=== PATIENT | female | born 1995 | race Caucasian/White ===

== ENCOUNTER 2016-09-24 19:37 | Inpatient (IN) | payer BC ==
[~2016-09-24] VITALS: Ht 154.9 cm; Wt 60.4 kg
[~2016-09-24 19:37] MED LIST: ENALAPRIL MALEA10 M1 PO; INSULIN PUMP SCCONT; KEPPRA100 MG/1 M PO; KEPPRA1000 MG PO; LANTUS100 UNIT/1 SQ; LEVEMIR FL100 UNIT/1 SC; NOVOLOG 10100 UNITS/ SC; NOVOLOG PE100 UNITS/ SC; NOVOLOG100 UNIT/1 SQ; STRATTERA80 MG PO; VALTREX1000 MG PO; VYVANSE30 MG PO; ZOFRAN4 MG PO
[2016-09-24 20:07] LABS: HEMATOCRIT 40.7 % (36.0-46.0); MCH 30.6 PG (29.0-34.0); MCHC 35.4 G/DL (30.0-36.0); MCV 86.6 FL (83-99); MEAN PLAT.VOLUME 9.6 uM^3 (9.5-12.4); PLATELET COUNT 341 K/uL (156-360); RBC DIS.WIDTH-CV 12.8 % (11.8-14.6)
[2016-09-24 20:17] LABS: CHLORIDE 106 mEq/L (99-109); POTASSIUM 3.7 mEq/L (3.7-5.4); SODIUM 136 mEq/L (136-147)
[2016-09-24 20:18] LABS: AMYLASE 37 IU/L (1-118)
[2016-09-24 20:20] LABS: GLUCOSE 109 mg/dL (70-99)
[2016-09-24 20:21] LABS: ANION GAP 17 MEQ/L (2-14)
[2016-09-24 20:22] LABS: TOTAL BILIRUBIN 0.1 mg/dL (0.0-1.0)
[2016-09-24 20:23] LABS: ALKALINE PHOSPHATASE 118 IU/L (3-129); GFR ESTIMATE (CALCULATED) > 59 mL/min/
[2016-09-24 20:25] LABS: UREA NITROGEN (BUN) 10 mg/dL (9-23)
[2016-09-24 20:27] LABS: LIPASE 6 U/L (1.0-51.0)
[2016-09-24 20:31] LABS: ADD MIUA? YES; BILIRUBIN NEGATIVE; BLOOD LARGE; COLOR YELLOW ((YELLOW)); GLUCOSE (STRIP) NEGATIVE; KETONES 80; LEUKOCYTES NEGATIVE; NITRITE NEGATIVE; PROTEIN (STRIP) 30; SPECIFIC GRAVITY 1.009 (1.000-1.030); UROBILINOGEN 0.2 MG/DL (0.2-1.0)
[2016-09-24 20:33] LABS: QUANTITATIVE HCG < 4.0 MIU/ML
[2016-09-24 20:41] LABS: BACTERIA NONE SEEN /HPF; EPITHELIAL CELLS RARE /HPF; HYALINE CASTS 0-5 /LPF; MUCUS TRACE /LPF; RED BLOOD CELLS TNTC /HPF (0-5); UCUL ADDED? NO; UNCLASSIFIED CRYSTALS 1+ /HPF; WHITE BLOOD CELLS 0-5 /HPF (0-5)
[2016-09-24 21:16] LABS: CARBON DIOXIDE (BICARBONATE) 14.1 MEQ/L (20-31)
[2016-09-24 23:02] LABS: INFLUENZA A VIRAL ANTIGEN POSITIVE; INFLUENZA B VIRAL ANTIGEN NEGATIVE
[2016-09-24 23:11] LABS: CHLORIDE 113 mEq/L (99-109); POTASSIUM 3.4 mEq/L (3.7-5.4)
[2016-09-24 23:12] LABS: SODIUM 139 mEq/L (136-147)
[2016-09-24 23:13] LABS: GLUCOSE 116 mg/dL (70-99)
[2016-09-24 23:15] LABS: ANION GAP 14 MEQ/L (2-14)
[2016-09-24 23:17] LABS: GFR ESTIMATE (CALCULATED) > 59 mL/min/
[2016-09-24 23:18] LABS: UREA NITROGEN (BUN) 10 mg/dL (9-23)
[2016-09-24 23:58] LABS: CREATINE KINASE 128 IU/L (1-294)
[2016-09-25] VITALS (9 sets, daily range): BP systolic 92–136; BP diastolic 60–86
[2016-09-25] MEDS ORDERED: NOVOLOG PE100 UNITS/ SC (00:06)
[2016-09-25 02:19] LABS: POINT-OF-CARE METER ID UU13113702
[2016-09-25 03:53] LABS: METH RESISTANT S AUREUS PCR NEGATIVE (NEGATIVE)
[2016-09-25 03:54] LABS: PROBE CHECK PASS; SPECIMEN PROCESSING CONTROL PASS
[2016-09-25 04:31] LABS: POINT-OF-CARE USER ID PHATLC
[2016-09-25 04:52] LABS: CARBON DIOXIDE (BICARBONATE) 16.6 MEQ/L (20-31)
[2016-09-25 04:57] LABS: CHLORIDE 112 mEq/L (99-109); SODIUM 138 mEq/L (136-147)
[2016-09-25 04:58] LABS: CHLORIDE 113 mEq/L (99-109); SODIUM 138 mEq/L (136-147)
[2016-09-25 04:59] LABS: GLUCOSE 126 mg/dL (70-99)
[2016-09-25 05:00] LABS: ANION GAP 11 MEQ/L (2-14); GLUCOSE 127 mg/dL (70-99)
[2016-09-25 05:01] LABS: ANION GAP 10 MEQ/L (2-14)
[2016-09-25 05:03] LABS: GFR ESTIMATE (CALCULATED) > 59 mL/min/
[2016-09-25 05:04] LABS: GFR ESTIMATE (CALCULATED) > 59 mL/min/; UREA NITROGEN (BUN) 6 mg/dL (9-23)
[2016-09-25 05:05] LABS: UREA NITROGEN (BUN) 6 mg/dL (9-23)
[2016-09-25 08:37] LABS: MAGNESIUM 1.4 mg/dL (1.3-2.7)
[2016-09-25 10:37] LABS: ANION GAP 12 MEQ/L (2-14); CHLORIDE 108 MEQ/L (99-109); GFR ESTIMATE (CALCULATED) > 59 mL/min/; GLUCOSE 156 mg/dL (70-99); SAMPLE HEMOLYSIS CHECK 1; SAMPLE ICTERIC CHECK 0; SAMPLE LIPEMIA CHECK 0; SODIUM 138 MEQ/L (136-147); UREA NITROGEN (BUN) 5 mg/dL (9-23)
[2016-09-25 10:38] LABS: POTASSIUM 3.7 MEQ/L (3.7-5.4)
[2016-09-25 15:30] LABS: ANION GAP 9 MEQ/L (2-14); CHLORIDE 110 MEQ/L (99-109); GFR ESTIMATE (CALCULATED) > 59 mL/min/; MAGNESIUM 2.1 mg/dl (1.3-2.7); POTASSIUM 3.4 MEQ/L (3.7-5.4); SAMPLE HEMOLYSIS CHECK 0; SAMPLE ICTERIC CHECK 0; SAMPLE LIPEMIA CHECK 0; SODIUM 139 MEQ/L (136-147); UREA NITROGEN (BUN) 6 mg/dL (9-23)
[2016-09-25 15:33] LABS: GLUCOSE 273 mg/dL (70-99)
[2016-09-25] MEDS ORDERED: OSELTAMIVIR PHO75 MG PO (15:49)
[2016-09-25] MEDS ORDERED: Tums,OsCal PO (15:50)
== END 2016-09-25 16:19 | disposition home or self-care (01) | DRG 639 ==
LOC: EME 19:37 → EDOF 09-25 01:05 → 4WEST 09-25 02:04
PROVIDERS: Emergency Medicine; Family Medicine; Hospitalist; Physician Assistant
DX: E10.10 Type 1 diabetes mellitus with ketoacidosis without coma (principal); E87.6 Hypokalemia; J11.1 Influenza due to unidentified influenza virus with other respiratory manifestations; E86.0 Dehydration; G40.909 Epilepsy, unspecified, not intractable, without status epilepticus; R31.9 Hematuria, unspecified; Z96.41 Presence of insulin pump (external) (internal); Z79.4 Long term (current) use of insulin; F17.200 Nicotine dependence, unspecified, uncomplicated
CPT/HCPCS: 74176; 80048 91; 80053; 80069; 81003; 82010; 82150; 82550; 82803; 82948; 83690; 83735; 84702; 85027; 87081; 87502; 87641; 99281; 99285; J1644; J1815; J1885; J3010; J3475; J3480; J7030; J7120

== ENCOUNTER 2016-10-20 10:12 | Inpatient (IN) | payer BC ==
[2016-10-20] VITALS (10 sets, daily range): BP systolic 102–125; BP diastolic 65–87
[~2016-10-20] VITALS: Ht 154.9 cm; Wt 60.7 kg
[~2016-10-20 10:12] MED LIST changes: +OSELTAMIVIR PHO75 MG PO; +Tums,OsCal PO
[2016-10-20 10:50] LABS: HEMATOCRIT 43.3 % (36.0-46.0); MCH 31.6 PG (29.0-34.0); MCHC 32.6 G/DL (30.0-36.0); PLATELET COUNT 353 K/uL (156-360); RBC DIS.WIDTH-CV 14.3 % (11.8-14.6); RBC DIS.WIDTH-SD 50.8 % (39-53); RED BLOOD COUNT 4.46 M/uL (3.80-5.20)
[2016-10-20 10:52] LABS: MCV 97.1 FL (83-99); WHITE BLOOD COUNT 11.5 K/uL (4.1-10.2)
[2016-10-20 10:54] LABS: CARBON DIOXIDE (BICARBONATE) 7.7 MEQ/L (20-31)
[2016-10-20 11:06] LABS: CHLORIDE 100 mEq/L (99-109); POTASSIUM 4.7 mEq/L (3.7-5.4); SODIUM 133 mEq/L (136-147)
[2016-10-20 11:07] LABS: GLUCOSE 558 mg/dL (70-99)
[2016-10-20 11:09] LABS: ANION GAP 28 MEQ/L (2-14)
[2016-10-20 11:11] LABS: GFR ESTIMATE (CALCULATED) > 59 mL/min/
[2016-10-20 11:12] LABS: UREA NITROGEN (BUN) 13 mg/dL (9-23)
[2016-10-20 11:34] LABS: TOTAL BILIRUBIN 0.3 mg/dL (0.0-1.0)
[2016-10-20 11:35] LABS: ALKALINE PHOSPHATASE 111 IU/L (3-129)
[2016-10-20 11:38] LABS: LIPASE 884 U/L (1.0-51.0)
[2016-10-20 13:04] LABS: ADD MIUA? NO; BILIRUBIN NEGATIVE; BLOOD NEGATIVE; COLOR STRAW ((YELLOW)); GLUCOSE (STRIP) >=500; KETONES 80; LEUKOCYTES NEGATIVE; NITRITE NEGATIVE; PROTEIN (STRIP) 30; SPECIFIC GRAVITY 1.025 (1.000-1.030); UCUL ADDED? NO; UROBILINOGEN 0.2 MG/DL (0.2-1.0)
[2016-10-20] MEDS ORDERED: TUMS500 MG PO (13:54)
[2016-10-20] MEDS ORDERED: TRESIBA FL100 UNIT/1 SC (13:55)
[2016-10-20] MEDS ORDERED: MELOXICAM15 MG PO (13:55)
[2016-10-20 14:17] LABS: SAMPLE HEMOLYSIS CHECK 0; SAMPLE ICTERIC CHECK 0; SAMPLE LIPEMIA CHECK 0; TRIGLYCERIDES 631 MG/DL (Normal: <150)
[2016-10-20 14:22] LABS: Estimated Average Glucose 286 mg/dL (70-123); HEMOGLOBIN A1c (GLYCOHEMOGLOB) 11.6 % HGB (Below 5.7)
[2016-10-20 14:30] LABS: POINT-OF-CARE METER ID UU13113702
[2016-10-20 15:09] LABS: POINT-OF-CARE METER ID UU13113702
[2016-10-20 15:50] LABS: TROP-I INTERPRETATION NEGATIVE; TROPONIN-I < 0.01 ng/mL (0.0-0.30)
[2016-10-20 15:57] LABS: POINT-OF-CARE METER ID UU14174217
[2016-10-20 15:57] LABS: POTASSIUM 4.9 mEq/L (3.7-5.4)
[2016-10-20 16:00] LABS: ANION GAP 24 MEQ/L (2-14)
[2016-10-20 16:02] LABS: GFR ESTIMATE (CALCULATED) > 59 mL/min/
[2016-10-20 16:03] LABS: UREA NITROGEN (BUN) 12 mg/dL (9-23)
[2016-10-20 16:06] LABS: CHLORIDE 113 mEq/L (99-109); GLUCOSE 196 mg/dL (70-99); SODIUM 141 mEq/L (136-147)
[2016-10-20 17:10] LABS: METH RESISTANT S AUREUS PCR NEGATIVE (NEGATIVE)
[2016-10-20 17:12] LABS: PROBE CHECK PASS; SPECIMEN PROCESSING CONTROL PASS
[2016-10-20 17:19] LABS: POINT-OF-CARE METER ID UU14174217
[2016-10-20 18:21] LABS: POINT-OF-CARE METER ID UU14174217
[2016-10-20 18:25] LABS: POINT-OF-CARE METER ID UU14174217
[2016-10-20 19:45] LABS: POINT-OF-CARE METER ID UU14174217; POINT-OF-CARE USER ID PHATLC
[2016-10-20 20:34] LABS: POINT-OF-CARE METER ID UU14174217; POINT-OF-CARE USER ID ENVSME70
[2016-10-20 21:58] LABS: POINT-OF-CARE METER ID UU14174217; POINT-OF-CARE USER ID PHATLC
[2016-10-20 23:03] LABS: POINT-OF-CARE METER ID UU14174217; POINT-OF-CARE USER ID PHATLC
[2016-10-20 23:49] LABS: POINT-OF-CARE METER ID UU14174217; POINT-OF-CARE USER ID PHATLC
[2016-10-21] VITALS (24 sets, daily range): BP systolic 97–131; BP diastolic 58–89
[2016-10-21 01:11] LABS: POINT-OF-CARE METER ID UU14174217; POINT-OF-CARE USER ID PHATLC
[2016-10-21 02:13] LABS: POINT-OF-CARE METER ID UU14174217; POINT-OF-CARE USER ID PHATLC
[2016-10-21 02:40] LABS: POINT-OF-CARE METER ID UU14174217; POINT-OF-CARE USER ID PHATLC
[2016-10-21 03:36] LABS: CHLORIDE 111 mEq/L (99-109); SODIUM 137 mEq/L (136-147)
[2016-10-21 03:37] LABS: MAGNESIUM 1.6 mg/dL (1.3-2.7)
[2016-10-21 03:38] LABS: GLUCOSE 240 mg/dL (70-99)
[2016-10-21 03:40] LABS: ANION GAP 19 MEQ/L (2-14)
[2016-10-21 03:42] LABS: GFR ESTIMATE (CALCULATED) > 59 mL/min/
[2016-10-21 03:43] LABS: POTASSIUM 3.8 mEq/L (3.7-5.4); UREA NITROGEN (BUN) 6 mg/dL (9-23)
[2016-10-21 03:45] LABS: POINT-OF-CARE METER ID UU14174217; POINT-OF-CARE USER ID PHATLC
[2016-10-21 04:49] LABS: POINT-OF-CARE METER ID UU14174217; POINT-OF-CARE USER ID PHATLC
[2016-10-21 05:41] LABS: POINT-OF-CARE METER ID UU14174217; POINT-OF-CARE USER ID PHATLC
[2016-10-21 06:25] LABS: HEMATOCRIT 39.7 % (36.0-46.0); MCH 30.9 PG (29.0-34.0); MCHC 31.7 G/DL (30.0-36.0); MCV 97.3 FL (83-99); MEAN PLAT.VOLUME 9.6 uM^3 (9.5-12.4); PLATELET COUNT 300 K/uL (156-360); RBC DIS.WIDTH-CV 14.8 % (11.8-14.6); RBC DIS.WIDTH-SD 52.5 % (39-53); RED BLOOD COUNT 4.08 M/uL (3.80-5.20); WHITE BLOOD COUNT 11.8 K/uL (4.1-10.2)
[2016-10-21 06:26] LABS: POINT-OF-CARE METER ID UU14174217; POINT-OF-CARE USER ID PHATLC
[2016-10-21 07:27] LABS: POINT-OF-CARE METER ID UU14174217
[2016-10-21 07:48] LABS: ANION GAP 20 MEQ/L (2-14); CHLORIDE 111 MEQ/L (99-109); GFR ESTIMATE (CALCULATED) > 59 mL/min/; POTASSIUM 3.6 MEQ/L (3.7-5.4); SAMPLE HEMOLYSIS CHECK 0; SAMPLE ICTERIC CHECK 0; SAMPLE LIPEMIA CHECK 0; SODIUM 140 MEQ/L (136-147); UREA NITROGEN (BUN) 5 mg/dL (9-23)
[2016-10-21 07:50] LABS: CARBON DIOXIDE (BICARBONATE) < 10.0 MEQ/L (20-31); GLUCOSE 107 mg/dL (70-99)
[2016-10-21 08:15] LABS: LIPASE 1041 U/L (1.0-51.0)
[2016-10-21 08:25] LABS: POINT-OF-CARE METER ID UU14174217
[2016-10-21 08:47] LABS: AMYLASE 438 IU/L (1-118)
[2016-10-21 09:30] LABS: POINT-OF-CARE METER ID UU14174217
[2016-10-21 10:23] LABS: POINT-OF-CARE METER ID UU14174217
[2016-10-21 11:16] LABS: POINT-OF-CARE METER ID UU14174217
[2016-10-21 12:13] LABS: POINT-OF-CARE METER ID UU14174217
[2016-10-21 13:12] LABS: ANION GAP 16 MEQ/L (2-14); CHLORIDE 109 MEQ/L (99-109); GFR ESTIMATE (CALCULATED) > 59 mL/min/; GLUCOSE 134 mg/dL (70-99); POTASSIUM 3.4 MEQ/L (3.7-5.4); SAMPLE HEMOLYSIS CHECK 0; SAMPLE ICTERIC CHECK 0; SAMPLE LIPEMIA CHECK 0; SODIUM 137 MEQ/L (136-147); UREA NITROGEN (BUN) 4 mg/dL (9-23)
[2016-10-21 13:22] LABS: POINT-OF-CARE METER ID UU14174217; POINT-OF-CARE USER ID 606021424
[2016-10-21 14:14] LABS: POINT-OF-CARE METER ID UU14174217
[2016-10-21 15:44] LABS: POINT-OF-CARE METER ID UU14174217
[2016-10-21 15:44] LABS: POINT-OF-CARE METER ID UU14174217
[2016-10-21 15:56] LABS: ANION GAP 15 MEQ/L (2-14); CHLORIDE 108 MEQ/L (99-109); GFR ESTIMATE (CALCULATED) > 59 mL/min/; GLUCOSE 116 mg/dL (70-99); POTASSIUM 3.7 MEQ/L (3.7-5.4); SAMPLE HEMOLYSIS CHECK 0; SAMPLE ICTERIC CHECK 0; SAMPLE LIPEMIA CHECK 0; SODIUM 135 MEQ/L (136-147); UREA NITROGEN (BUN) 4 mg/dL (9-23)
[2016-10-21 16:00] LABS: TROP-I INTERPRETATION NEGATIVE; TROPONIN-I 0.01 ng/mL (0.0-0.30)
[2016-10-21 16:44] LABS: POINT-OF-CARE METER ID UU14174217
[2016-10-21 17:46] LABS: POINT-OF-CARE METER ID UU14174217
[2016-10-21 18:39] LABS: POINT-OF-CARE METER ID UU13113731
[2016-10-21 19:46] LABS: POINT-OF-CARE METER ID UU13113731
[2016-10-21 20:08] LABS: ANION GAP 20 MEQ/L (2-14); CHLORIDE 102 MEQ/L (99-109); GFR ESTIMATE (CALCULATED) > 59 mL/min/; POTASSIUM 3.9 MEQ/L (3.7-5.4); SAMPLE HEMOLYSIS CHECK 0; SAMPLE ICTERIC CHECK 0; SAMPLE LIPEMIA CHECK 0; SODIUM 130 MEQ/L (136-147); UREA NITROGEN (BUN) 5 mg/dL (9-23)
[2016-10-21 20:13] LABS: GLUCOSE 412 mg/dL (70-99)
[2016-10-21 20:48] LABS: POINT-OF-CARE METER ID UU14174217
[2016-10-21 21:51] LABS: POINT-OF-CARE METER ID UU14174217
[2016-10-21 22:19] LABS: POINT-OF-CARE METER ID UU14174217
[2016-10-21 23:19] LABS: POINT-OF-CARE METER ID UU14174217
[2016-10-22] VITALS (19 sets, daily range): BP systolic 92–117; BP diastolic 53–86
[2016-10-22 00:18] LABS: POINT-OF-CARE METER ID UU14174217
[2016-10-22 00:48] LABS: POINT-OF-CARE METER ID UU14174217
[2016-10-22 01:03] LABS: CHLORIDE 108 mEq/L (99-109); SODIUM 133 mEq/L (136-147)
[2016-10-22 01:05] LABS: GLUCOSE 390 mg/dL (70-99)
[2016-10-22 01:06] LABS: ANION GAP 22 MEQ/L (2-14)
[2016-10-22 01:08] LABS: GFR ESTIMATE (CALCULATED) > 59 mL/min/
[2016-10-22 01:09] LABS: UREA NITROGEN (BUN) 5 mg/dL (9-23)
[2016-10-22 01:26] LABS: CARBON DIOXIDE (BICARBONATE) < 5.0 mEq/L (20-31)
[2016-10-22 02:33] LABS: POINT-OF-CARE METER ID UU13113731
[2016-10-22 02:46] LABS: POINT-OF-CARE METER ID UU13113731
[2016-10-22 03:22] LABS: POINT-OF-CARE METER ID UU13113731
[2016-10-22 04:09] LABS: POINT-OF-CARE METER ID UU13113731
[2016-10-22 05:26] LABS: POINT-OF-CARE METER ID UU13113731
[2016-10-22 06:29] LABS: POINT-OF-CARE METER ID UU13113731
[2016-10-22 07:04] LABS: ANION GAP 24 MEQ/L (2-14); CHLORIDE 106 MEQ/L (99-109); GFR ESTIMATE (CALCULATED) > 59 mL/min/; GLUCOSE 330 mg/dL (70-99); POTASSIUM 3.4 MEQ/L (3.7-5.4); SAMPLE HEMOLYSIS CHECK 0; SAMPLE ICTERIC CHECK 0; SAMPLE LIPEMIA CHECK 0; SODIUM 134 MEQ/L (136-147); UREA NITROGEN (BUN) 5 mg/dL (9-23)
[2016-10-22 07:05] LABS: CARBON DIOXIDE (BICARBONATE) < 10.0 MEQ/L (20-31)
[2016-10-22 07:08] LABS: AMYLASE 287 IU/L (1-118); LIPASE 591 U/L (1.0-51.0)
[2016-10-22 07:46] LABS: POINT-OF-CARE METER ID UU13113731
[2016-10-22 08:20] LABS: POINT-OF-CARE METER ID UU13113731
[2016-10-22 08:34] LABS: HEMATOCRIT 36.5 % (36.0-46.0); MCH 31.5 PG (29.0-34.0); MCHC 31.5 G/DL (30.0-36.0); MEAN PLAT.VOLUME 10.3 uM^3 (9.5-12.4); PLATELET COUNT 242 K/uL (156-360); RBC DIS.WIDTH-CV 14.9 % (11.8-14.6); RBC DIS.WIDTH-SD 54.6 % (39-53); RED BLOOD COUNT 3.65 M/uL (3.80-5.20); WHITE BLOOD COUNT 8.5 K/uL (4.1-10.2)
[2016-10-22 08:36] LABS: POINT-OF-CARE METER ID UU13113731
[2016-10-22 09:05] LABS: QUANTITATIVE HCG < 4.0 MIU/ML
[2016-10-22 09:41] LABS: POINT-OF-CARE METER ID UU13113731
[2016-10-22 10:43] LABS: POINT-OF-CARE METER ID UU13113731
[2016-10-22 11:16] LABS: POINT-OF-CARE METER ID UU13113731
[2016-10-22 12:16] LABS: POINT-OF-CARE METER ID UU13113731
[2016-10-22 12:41] LABS: ANION GAP 11 MEQ/L (2-14); CHLORIDE 107 MEQ/L (99-109); GFR ESTIMATE (CALCULATED) > 59 mL/min/; SAMPLE HEMOLYSIS CHECK 0; SAMPLE ICTERIC CHECK 0; SAMPLE LIPEMIA CHECK 0; SODIUM 133 MEQ/L (136-147); UREA NITROGEN (BUN) 3 mg/dL (9-23)
[2016-10-22 12:43] LABS: GLUCOSE 118 mg/dL (70-99)
[2016-10-22 12:43] LABS: POINT-OF-CARE METER ID UU13113731
[2016-10-22 13:28] LABS: POINT-OF-CARE METER ID UU13113731
[2016-10-22 14:40] LABS: POINT-OF-CARE METER ID UU13113731
[2016-10-22 15:44] LABS: POINT-OF-CARE METER ID UU13113731
[2016-10-22 16:58] LABS: POINT-OF-CARE METER ID UU13113731
[2016-10-22 19:19] LABS: ANION GAP 15 MEQ/L (2-14); CHLORIDE 106 MEQ/L (99-109); GFR ESTIMATE (CALCULATED) > 59 mL/min/; SAMPLE HEMOLYSIS CHECK 0; SAMPLE ICTERIC CHECK 0; SAMPLE LIPEMIA CHECK 0; SODIUM 134 MEQ/L (136-147); UREA NITROGEN (BUN) 3 mg/dL (9-23)
[2016-10-22 19:26] LABS: GLUCOSE 267 mg/dL (70-99); POTASSIUM 3.9 MEQ/L (3.7-5.4)
[2016-10-22 22:08] LABS: POINT-OF-CARE METER ID UU13113731
[2016-10-23] VITALS (13 sets, daily range): BP systolic 93–132; BP diastolic 8–94
[2016-10-23 00:45] LABS: CHLORIDE 110 mEq/L (99-109); POTASSIUM 3.5 mEq/L (3.7-5.4); SODIUM 138 mEq/L (136-147)
[2016-10-23 00:47] LABS: GLUCOSE 167 mg/dL (70-99)
[2016-10-23 00:49] LABS: ANION GAP 17 MEQ/L (2-14)
[2016-10-23 00:51] LABS: GFR ESTIMATE (CALCULATED) > 59 mL/min/
[2016-10-23 00:52] LABS: UREA NITROGEN (BUN) 5 mg/dL (9-23)
[2016-10-23 06:47] LABS: ANION GAP 12 MEQ/L (2-14); CHLORIDE 105 MEQ/L (99-109); GFR ESTIMATE (CALCULATED) > 59 mL/min/; POTASSIUM 3.8 MEQ/L (3.7-5.4); SAMPLE HEMOLYSIS CHECK 0; SAMPLE ICTERIC CHECK 0; SAMPLE LIPEMIA CHECK 0; SODIUM 135 MEQ/L (136-147); UREA NITROGEN (BUN) 4 mg/dL (9-23)
[2016-10-23 06:54] LABS: GLUCOSE 274 mg/dL (70-99)
[2016-10-23 07:53] LABS: POINT-OF-CARE METER ID UU14162636
[2016-10-23 10:00] LABS: MAGNESIUM 1.8 mg/dl (1.3-2.7)
[2016-10-23 11:18] LABS: POINT-OF-CARE METER ID UU14162636
[2016-10-23 12:50] LABS: ANION GAP 13 MEQ/L (2-14); CHLORIDE 105 MEQ/L (99-109); GFR ESTIMATE (CALCULATED) > 59 mL/min/; GLUCOSE 159 mg/dL (70-99); POTASSIUM 3.2 MEQ/L (3.7-5.4); SAMPLE HEMOLYSIS CHECK 0; SAMPLE ICTERIC CHECK 0; SAMPLE LIPEMIA CHECK 0; SODIUM 137 MEQ/L (136-147); UREA NITROGEN (BUN) 3 mg/dL (9-23)
[2016-10-23 14:31] LABS: POINT-OF-CARE METER ID UU14162636
[2016-10-23 17:54] LABS: POINT-OF-CARE METER ID UU13113702
[2016-10-23 17:54] LABS: POINT-OF-CARE METER ID UU13113702
[2016-10-23 21:03] LABS: ANION GAP 15 MEQ/L (2-14); CHLORIDE 102 MEQ/L (99-109); GFR ESTIMATE (CALCULATED) > 59 mL/min/; GLUCOSE 155 mg/dL (70-99); POTASSIUM 3.6 MEQ/L (3.7-5.4); SAMPLE HEMOLYSIS CHECK 0; SAMPLE ICTERIC CHECK 0; SAMPLE LIPEMIA CHECK 0; SODIUM 140 MEQ/L (136-147); UREA NITROGEN (BUN) 5 mg/dL (9-23)
[2016-10-23 23:35] LABS: ALKALINE PHOSPHATASE 95 IU/L (3-129); DIRECT BILIRUBIN 0.1 mg/dL (0.0-0.3); LIPASE 328 U/L (1.0-51.0); TOTAL BILIRUBIN 0.3 MG/DL (0.0-1.0)
[2016-10-24 03:40] VITALS: BP 125/90
[2016-10-24 07:33] VITALS: BP 128/95
[2016-10-24 07:57] LABS: ALKALINE PHOSPHATASE 96 IU/L (3-129); ANION GAP 12 MEQ/L (2-14); CHLORIDE 104 MEQ/L (99-109); GFR ESTIMATE (CALCULATED) > 59 mL/min/; GLUCOSE 135 mg/dL (70-99); POTASSIUM 3.6 MEQ/L (3.7-5.4); SAMPLE HEMOLYSIS CHECK 0; SAMPLE ICTERIC CHECK 0; SAMPLE LIPEMIA CHECK 0; SODIUM 142 MEQ/L (136-147); TOTAL BILIRUBIN 0.3 MG/DL (0.0-1.0); UREA NITROGEN (BUN) 5 mg/dL (9-23)
[2016-10-24 08:05] LABS: POINT-OF-CARE METER ID UU14188577
[2016-10-24 08:05] LABS: EOSINOPHIL COUNT 0.1 K/uL (0-0.3); HEMATOCRIT 31.6 % (36.0-46.0); IMMATURE GRANULOCYTE (%) 0.8 % (0.0-0.7); INSTRUMENT ABS NEUTROPHIL CT 1.5 K/uL; LYMPHOCYTE COUNT 1.8 K/uL (1.0-2.8); MCH 31.2 PG (29.0-34.0); MCHC 33.9 G/DL (30.0-36.0); MEAN PLAT.VOLUME 9.5 uM^3 (9.5-12.4); MONOCYTE (%) 6.8 % (3-12); MONOCYTE COUNT 0.3 K/uL (0-0.8); NEUTROPHIL (%) 40.5 % (45-76); NEUTROPHIL COUNT 1.5 K/uL (1.8-6.4); PLATELET COUNT 229 K/uL (156-360); RBC DIS.WIDTH-CV 14.5 % (11.8-14.6); RBC DIS.WIDTH-SD 48.5 % (39-53); RED BLOOD COUNT 3.43 M/uL (3.80-5.20)
[2016-10-24 08:07] LABS: MCV 92.1 FL (83-99); WHITE BLOOD COUNT 3.7 K/uL (4.1-10.2)
[2016-10-24 08:15] LABS: CARBON DIOXIDE (BICARBONATE) 30.5 MEQ/L (20-31)
[2016-10-24 10:01] LABS: MAGNESIUM 1.8 mg/dl (1.3-2.7)
[2016-10-24 12:09] LABS: POINT-OF-CARE METER ID UU14188577
== END 2016-10-24 12:22 | disposition home or self-care (01) | DRG 637 ==
LOC: EME → EDBD 10:12 → 3EAST 14:34 → 4WEST 14:34 → EDOF 14:34 → 4WEST 15:38 → 3EAST 10-23 16:01
PROVIDERS: Anesthesiology; Emergency Medicine; Hospitalist; Internal Medicine Critical Care Medicine
DX: E10.10 Type 1 diabetes mellitus with ketoacidosis without coma (principal); K85.90 Acute pancreatitis without necrosis or infection, unspecified; F17.200 Nicotine dependence, unspecified, uncomplicated; Z79.4 Long term (current) use of insulin
CPT/HCPCS: 74177; 80048; 80048 91; 80053; 80076; 81003; 82010; 82150; 82150 91; 82803; 82948; 83036; 83605; 83690; 83735; 84100; 84478; 84484; 84702; 85025; 85027; 87040; 87081; 87641; 93005; 99281; 99285; J0696; J1170; J1650; J1815; J2270; J2405; J3010; J3475; J3480; J7030; J7040; J7050; J7120; S0028

== ENCOUNTER 2017-03-29 09:25 | Inpatient (IN) | payer BC ==
[~2017-03-29] VITALS: Ht 154.9 cm; Wt 55.8 kg
[~2017-03-29 09:25] MED LIST changes: +MELOXICAM15 MG PO; +TRESIBA FL100 UNIT/1 SC; +TUMS500 MG PO
[2017-03-29 09:54] LABS: POINT-OF-CARE METER ID UU13113778
[2017-03-29 10:11] LABS: BASOPHIL COUNT 0.1 K/uL (0-0.1); EOSINOPHIL (%) 0.1 % (0-5); HEMATOCRIT 51.1 % (36.0-46.0); IMMATURE GRANULOCYTE (%) 2.5 % (0.0-0.7); IMMATURE GRANULOCYTE COUNT 0.4 K/uL; INSTRUMENT ABS NEUTROPHIL CT 12.4 K/uL; LYMPHOCYTE COUNT 1.5 K/uL (1.0-2.8); MCH 31.6 PG (29.0-34.0); MCHC 31.7 G/DL (30.0-36.0); MCV 99.6 FL (83-99); MEAN PLAT.VOLUME 9.4 uM^3 (9.5-12.4); MONOCYTE (%) 6.6 % (3-12); NEUTROPHIL (%) 80.3 % (45-76); NEUTROPHIL COUNT 12.4 K/uL (1.8-6.4); PLATELET COUNT 468 K/uL (156-360); RBC DIS.WIDTH-CV 13.2 % (11.8-14.6); RBC DIS.WIDTH-SD 48.9 % (39-53); RED BLOOD COUNT 5.13 M/uL (3.80-5.20); WHITE BLOOD COUNT 15.5 K/uL (4.1-10.2)
[2017-03-29 10:24] LABS: CHLORIDE 108 mEq/L (99-109); POTASSIUM 4.4 mEq/L (3.7-5.4); SODIUM 145 mEq/L (136-147)
[2017-03-29 10:26] LABS: GLUCOSE 249 mg/dL (70-99)
[2017-03-29 10:27] LABS: ANION GAP 33 MEQ/L (2-14)
[2017-03-29 10:28] LABS: TOTAL BILIRUBIN 0.2 mg/dL (0.0-1.0)
[2017-03-29 10:29] LABS: ALKALINE PHOSPHATASE 120 IU/L (3-129)
[2017-03-29 10:30] LABS: GFR ESTIMATE (CALCULATED) 42 mL/min/
[2017-03-29 10:31] LABS: UREA NITROGEN (BUN) 14 mg/dL (9-23)
[2017-03-29 10:33] LABS: LIPASE 65 U/L (1.0-51.0)
[2017-03-29 10:34] LABS: CARBON DIOXIDE (BICARBONATE) 7.5 MEQ/L (20-31)
[2017-03-29 10:39] LABS: QUANTITATIVE HCG < 4.0 MIU/ML
[2017-03-29 11:25] LABS: SERUM ETHYL ALCOHOL < 10 mg/dL
[2017-03-29 11:46] LABS: Estimated Average Glucose 260 mg/dL (70-123); HEMOGLOBIN A1c (GLYCOHEMOGLOB) 10.7 % HGB (Below 5.7)
[2017-03-29 12:09] LABS: CHLORIDE 115 mEq/L (99-109); POTASSIUM 4.3 mEq/L (3.7-5.4); SODIUM 144 mEq/L (136-147)
[2017-03-29 12:10] LABS: GLUCOSE 167 mg/dL (70-99)
[2017-03-29 12:12] LABS: ANION GAP 23 MEQ/L (2-14)
[2017-03-29 12:14] LABS: GFR ESTIMATE (CALCULATED) 59 mL/min/
[2017-03-29 12:15] LABS: UREA NITROGEN (BUN) 12 mg/dL (9-23)
[2017-03-29 12:34] LABS: POINT-OF-CARE METER ID UU13113702
[2017-03-29 13:06] VITALS: BP 113/82
[2017-03-29 13:28] LABS: POINT-OF-CARE METER ID UU14208751
[2017-03-29 14:36] LABS: METH RESISTANT S AUREUS PCR NEGATIVE (NEGATIVE)
[2017-03-29 14:39] LABS: PROBE CHECK PASS; SPECIMEN PROCESSING CONTROL PASS
[2017-03-29 14:44] LABS: POINT-OF-CARE METER ID UU14208751
[2017-03-29 14:44] LABS: MAGNESIUM 1.8 mg/dL (1.3-2.7)
[2017-03-29 15:11] LABS: ANION GAP 24 MEQ/L (2-14); CHLORIDE 109 MEQ/L (99-109); GFR ESTIMATE (CALCULATED) > 59 mL/min/; GLUCOSE 331 mg/dL (70-99); POTASSIUM 4.1 MEQ/L (3.7-5.4); SAMPLE HEMOLYSIS CHECK 0; SAMPLE ICTERIC CHECK 0; SAMPLE LIPEMIA CHECK 0; SODIUM 140 MEQ/L (136-147); UREA NITROGEN (BUN) 11 mg/dL (9-23)
[2017-03-29 15:14] LABS: CARBON DIOXIDE (BICARBONATE) < 10.0 MEQ/L (20-31)
[2017-03-29 15:39] LABS: POINT-OF-CARE METER ID UU14208751
[2017-03-29 15:47] LABS: ADD MIUA? YES; BILIRUBIN NEGATIVE; BLOOD MODERATE; COLOR YELLOW ((YELLOW)); GLUCOSE (STRIP) >=500; KETONES 80; LEUKOCYTES NEGATIVE; NITRITE NEGATIVE; PROTEIN (STRIP) 100; SPECIFIC GRAVITY 1.014 (1.000-1.030); UROBILINOGEN 0.2 MG/DL (0.2-1.0)
[2017-03-29 15:52] LABS: BACTERIA RARE /HPF; EPITHELIAL CELLS RARE /HPF; MUCUS TRACE /LPF; RED BLOOD CELLS 0-5 /HPF (0-5)
[2017-03-29 16:28] LABS: POINT-OF-CARE METER ID UU14208751
[2017-03-29 17:20] LABS: POINT-OF-CARE METER ID UU14208751
[2017-03-29 18:23] LABS: POINT-OF-CARE METER ID UU14208751
[2017-03-29 19:00] VITALS: BP 100/62
[2017-03-29 19:22] LABS: POINT-OF-CARE METER ID UU14162636; POINT-OF-CARE USER ID PHATLC
[2017-03-29 20:00] VITALS: BP 124/81
[2017-03-29 20:23] LABS: ANION GAP 19 MEQ/L (2-14); CHLORIDE 110 MEQ/L (99-109); GFR ESTIMATE (CALCULATED) > 59 mL/min/; GLUCOSE 168 mg/dL (70-99); SAMPLE HEMOLYSIS CHECK 0; SAMPLE ICTERIC CHECK 0; SAMPLE LIPEMIA CHECK 0; SODIUM 141 MEQ/L (136-147); UREA NITROGEN (BUN) 8 mg/dL (9-23)
[2017-03-29 20:34] LABS: POINT-OF-CARE METER ID UU13113748; POINT-OF-CARE USER ID PHATLC
[2017-03-29 20:37] LABS: POTASSIUM 3.2 MEQ/L (3.7-5.4)
[2017-03-29 21:00] VITALS: BP 121/85
[2017-03-29 21:37] LABS: POINT-OF-CARE METER ID UU13113748; POINT-OF-CARE USER ID PHATLC
[2017-03-29 22:00] VITALS: BP 111/81
[2017-03-29 22:40] LABS: POINT-OF-CARE METER ID UU13113748; POINT-OF-CARE USER ID PHATLC
[2017-03-29 23:00] VITALS: BP 118/83
[2017-03-29 23:28] LABS: POINT-OF-CARE METER ID UU14162636
[2017-03-30] VITALS (11 sets, daily range): BP systolic 103–133; BP diastolic 74–100
[2017-03-30 00:36] LABS: POINT-OF-CARE METER ID UU13113748; POINT-OF-CARE USER ID PHATLC
[2017-03-30 00:59] LABS: CHLORIDE 111 mEq/L (99-109); POTASSIUM 3.6 mEq/L (3.7-5.4); SODIUM 139 mEq/L (136-147)
[2017-03-30 01:00] LABS: GLUCOSE 141 mg/dL (70-99)
[2017-03-30 01:02] LABS: ANION GAP 14 MEQ/L (2-14)
[2017-03-30 01:04] LABS: GFR ESTIMATE (CALCULATED) > 59 mL/min/
[2017-03-30 01:05] LABS: UREA NITROGEN (BUN) 6 mg/dL (9-23)
[2017-03-30 01:47] LABS: POINT-OF-CARE METER ID UU13113748; POINT-OF-CARE USER ID PHATLC
[2017-03-30 02:52] LABS: POINT-OF-CARE METER ID UU13113748; POINT-OF-CARE USER ID PHATLC
[2017-03-30 03:45] LABS: POINT-OF-CARE METER ID UU14162636
[2017-03-30 04:40] LABS: EOSINOPHIL (%) 0.5 % (0-5); HEMATOCRIT 33.4 % (36.0-46.0); IMMATURE GRANULOCYTE (%) 1.1 % (0.0-0.7); IMMATURE GRANULOCYTE COUNT 0.1 K/uL; INSTRUMENT ABS NEUTROPHIL CT 5.6 K/uL; LYMPHOCYTE COUNT 1.9 K/uL (1.0-2.8); MCH 31.7 PG (29.0-34.0); MCHC 33.5 G/DL (30.0-36.0); MEAN PLAT.VOLUME 9.1 uM^3 (9.5-12.4); MONOCYTE COUNT 0.9 K/uL (0-0.8); NEUTROPHIL (%) 65.5 % (45-76); NEUTROPHIL COUNT 5.6 K/uL (1.8-6.4); RBC DIS.WIDTH-CV 13.2 % (11.8-14.6); RBC DIS.WIDTH-SD 45.1 % (39-53); WHITE BLOOD COUNT 8.6 K/uL (4.1-10.2)
[2017-03-30 04:41] LABS: MCV 94.6 FL (83-99); PLATELET COUNT 240 K/uL (156-360); RED BLOOD COUNT 3.53 M/uL (3.80-5.20)
[2017-03-30 04:44] LABS: CHLORIDE 113 mEq/L (99-109); POTASSIUM 3.5 mEq/L (3.7-5.4); SODIUM 141 mEq/L (136-147)
[2017-03-30 04:46] LABS: GLUCOSE 180 mg/dL (70-99)
[2017-03-30 04:48] LABS: ANION GAP 16 MEQ/L (2-14)
[2017-03-30 04:50] LABS: GFR ESTIMATE (CALCULATED) > 59 mL/min/
[2017-03-30 04:51] LABS: UREA NITROGEN (BUN) 5 mg/dL (9-23)
[2017-03-30 04:54] LABS: MAGNESIUM 1.3 mg/dL (1.3-2.7)
[2017-03-30 05:07] LABS: POINT-OF-CARE METER ID UU14162636
[2017-03-30 05:51] LABS: POINT-OF-CARE METER ID UU13113748; POINT-OF-CARE USER ID PHATLC
[2017-03-30 06:39] LABS: POINT-OF-CARE METER ID UU13113731; POINT-OF-CARE USER ID PHATLC
[2017-03-30 07:48] LABS: POINT-OF-CARE METER ID UU13113748
[2017-03-30 08:08] LABS: POINT-OF-CARE METER ID UU13113748
[2017-03-30 08:58] LABS: POINT-OF-CARE METER ID UU13113748
[2017-03-30 09:11] LABS: ANION GAP 14 MEQ/L (2-14); CHLORIDE 113 MEQ/L (99-109); SAMPLE HEMOLYSIS CHECK 0; SAMPLE ICTERIC CHECK 0; SAMPLE LIPEMIA CHECK 0; SODIUM 143 MEQ/L (136-147)
[2017-03-30 09:16] LABS: GFR ESTIMATE (CALCULATED) > 59 mL/min/; UREA NITROGEN (BUN) 5 mg/dL (9-23)
[2017-03-30 09:27] LABS: GLUCOSE 111 mg/dL (70-99)
[2017-03-30 09:54] LABS: LIPASE 185 U/L (1.0-51.0)
[2017-03-30 10:13] LABS: POINT-OF-CARE METER ID UU13113748
[2017-03-30 11:04] LABS: POINT-OF-CARE METER ID UU13113748
[2017-03-30 12:09] LABS: POINT-OF-CARE METER ID UU13113748
[2017-03-30 12:53] LABS: ANION GAP 12 MEQ/L (2-14); CHLORIDE 113 MEQ/L (99-109); POTASSIUM 3.2 MEQ/L (3.7-5.4); SAMPLE HEMOLYSIS CHECK 0; SAMPLE ICTERIC CHECK 0; SAMPLE LIPEMIA CHECK 0; SODIUM 143 MEQ/L (136-147)
[2017-03-30 12:59] LABS: GFR ESTIMATE (CALCULATED) > 59 mL/min/; GLUCOSE 88 mg/dL (70-99); UREA NITROGEN (BUN) 4 mg/dL (9-23)
[2017-03-30 13:23] LABS: POINT-OF-CARE METER ID UU13113748
[2017-03-30 14:34] LABS: POINT-OF-CARE METER ID UU13113748
[2017-03-30] MEDS ORDERED: VASOTEC10 MG PO (15:00)
[2017-03-30 18:10] LABS: POINT-OF-CARE METER ID UU13113731
[2017-03-30 23:50] LABS: POINT-OF-CARE METER ID UU14162636
[2017-03-31] VITALS: BP 125/100
[2017-03-31 01:49] VITALS: BP 123/92
[2017-03-31 06:41] LABS: EOSINOPHIL (%) 1.8 % (0-5); EOSINOPHIL COUNT 0.1 K/uL (0-0.3); HEMATOCRIT 33.1 % (36.0-46.0); IMMATURE GRANULOCYTE (%) 0.7 % (0.0-0.7); INSTRUMENT ABS NEUTROPHIL CT 1.8 K/uL; MCH 32.7 PG (29.0-34.0); MCHC 33.8 G/DL (30.0-36.0); MCV 96.5 FL (83-99); MEAN PLAT.VOLUME 9.1 uM^3 (9.5-12.4); MONOCYTE (%) 8.7 % (3-12); MONOCYTE COUNT 0.4 K/uL (0-0.8); NEUTROPHIL (%) 41.7 % (45-76); NEUTROPHIL COUNT 1.8 K/uL (1.8-6.4); PLATELET COUNT 180 K/uL (156-360); RBC DIS.WIDTH-CV 13.2 % (11.8-14.6); RBC DIS.WIDTH-SD 46.9 % (39-53); RED BLOOD COUNT 3.43 M/uL (3.80-5.20); WHITE BLOOD COUNT 4.4 K/uL (4.1-10.2)
[2017-03-31 07:03] LABS: ANION GAP 12 MEQ/L (2-14); CHLORIDE 106 MEQ/L (99-109); GFR ESTIMATE (CALCULATED) > 59 mL/min/; GLUCOSE 250 mg/dL (70-99); POTASSIUM 3.4 MEQ/L (3.7-5.4); SAMPLE HEMOLYSIS CHECK 0; SAMPLE ICTERIC CHECK 0; SAMPLE LIPEMIA CHECK 0; SODIUM 138 MEQ/L (136-147); UREA NITROGEN (BUN) 6 mg/dL (9-23)
[2017-03-31 07:10] VITALS: BP 141/91
[2017-03-31 12:08] LABS: POINT-OF-CARE METER ID UU13113725
[2017-03-31] MEDS ORDERED: BACTRIM,SEPT1 TABLET PO (13:46)
== END 2017-03-31 14:16 | disposition home or self-care (01) | DRG 638 ==
LOC: EME 09:25 → EDOF 11:09 → ENRESERV 11:12 → 4WEST 12:55 → ENPENDDIS 03-31 → 4WEST 03-31 00:28 → ENRESERV 03-31 00:33 → 5EAST 03-31 01:39
PROVIDERS: Emergency Medicine; Internal Medicine; Internal Medicine Nephrology
DX: E13.10 Other specified diabetes mellitus with ketoacidosis without coma (principal); N17.9 Acute kidney failure, unspecified; E83.42 Hypomagnesemia; E83.39 Other disorders of phosphorus metabolism; E87.6 Hypokalemia; N39.0 Urinary tract infection, site not specified; K86.1 Other chronic pancreatitis; G40.909 Epilepsy, unspecified, not intractable, without status epilepticus; F17.200 Nicotine dependence, unspecified, uncomplicated; Z79.4 Long term (current) use of insulin; Z91.14 Patient's other noncompliance with medication regimen; Z86.73 Personal history of transient ischemic attack (TIA), and cerebral infarction without residual deficits
CPT/HCPCS: 76705; 80048; 80048 91; 80053; 81003; 82803; 82948; 83036; 83690; 83735; 84100; 84702; 85025; 87641; 99281; 99285; G0480; J1170; J1644; J1815; J1953; J2270; J2405; J3475; J3480; J7030; J7042; J7050; J7120; S0028

== ENCOUNTER 2017-05-23 17:52 | Emergency (ER) | payer BC ==
[~2017-05-23] VITALS: Ht 154.9 cm; Wt 59.6 kg
[~2017-05-23 17:52] MED LIST changes: +BACTRIM,SEPT1 TABLET PO; +VASOTEC10 MG PO
[2017-05-23 18:37] LABS: EOSINOPHIL (%) 1.3 % (0-5); EOSINOPHIL COUNT 0.1 K/uL (0-0.3); HEMATOCRIT 35.7 % (36.0-46.0); IMMATURE GRANULOCYTE (%) 1.9 % (0.0-0.7); IMMATURE GRANULOCYTE COUNT 0.1 K/uL; INSTRUMENT ABS NEUTROPHIL CT 2.1 K/uL; LYMPHOCYTE COUNT 1.9 K/uL (1.0-2.8); MCH 32.7 PG (29.0-34.0); MCHC 34.2 G/DL (30.0-36.0); MCV 95.7 FL (83-99); MEAN PLAT.VOLUME 9.4 uM^3 (9.5-12.4); MONOCYTE (%) 9.1 % (3-12); MONOCYTE COUNT 0.4 K/uL (0-0.8); NEUTROPHIL (%) 45.1 % (45-76); NEUTROPHIL COUNT 2.1 K/uL (1.8-6.4); PLATELET COUNT 288 K/uL (156-360); RBC DIS.WIDTH-CV 14.1 % (11.8-14.6); RBC DIS.WIDTH-SD 49.2 % (39-53); RED BLOOD COUNT 3.73 M/uL (3.80-5.20); WHITE BLOOD COUNT 4.6 K/uL (4.1-10.2)
[2017-05-23 18:46] LABS: CHLORIDE 103 mEq/L (99-109); POTASSIUM 3.7 mEq/L (3.7-5.4); SODIUM 138 mEq/L (136-147)
[2017-05-23 18:48] LABS: GLUCOSE 185 mg/dL (70-99)
[2017-05-23 18:50] LABS: ANION GAP 17 MEQ/L (2-14); TOTAL BILIRUBIN 0.2 mg/dL (0.0-1.0)
[2017-05-23 18:52] LABS: ALKALINE PHOSPHATASE 80 IU/L (3-129); GFR ESTIMATE (CALCULATED) > 59 mL/min/
[2017-05-23 18:53] LABS: ADD MIUA? YES; BILIRUBIN NEGATIVE; BLOOD NEGATIVE; COLOR YELLOW ((YELLOW)); GLUCOSE (STRIP) 50; KETONES 20; LEUKOCYTES SMALL; NITRITE NEGATIVE; PROTEIN (STRIP) 100; SPECIFIC GRAVITY 1.018 (1.000-1.030); UROBILINOGEN 0.2 MG/DL (0.2-1.0)
[2017-05-23 18:53] LABS: UREA NITROGEN (BUN) 12 mg/dL (9-23)
[2017-05-23 18:56] LABS: LIPASE 40 U/L (1.0-51.0)
[2017-05-23 18:58] LABS: BACTERIA RARE /HPF; EPITHELIAL CELLS 2+ /HPF; MUCUS TRACE /LPF; RED BLOOD CELLS 0-5 /HPF (0-5); WHITE BLOOD CELLS 0-5 /HPF (0-5)
[2017-05-23 19:01] LABS: QUANTITATIVE HCG < 4.0 MIU/ML
[2017-05-23 19:36] LABS: INTERNAL CONTROL VALID? YES; MONOSPOT (MONONUCLEOSIS SEROL) NEGATIVE
[2017-05-23] MEDS ORDERED: MIRALAX255 GM PO (20:35)
[2017-05-23 20:54] VITALS: BP 121/83
[2017-05-24 10:56] LABS: HBSG INDEX 0.17; HPCA INDEX 0.13
[2017-05-24 11:02] LABS: ANTI-HEPATITIS A VIRUS (IGM) Nonreactive; HAV INDEX 0.18
[2017-05-24 11:03] LABS: ANTI-HEPATITIS B CORE (IGM) Nonreactive; HBC IgM INDEX 0.07
[2017-05-25 09:58] LABS: ANTI-EPSTEIN-BARR NUCLEAR AG POSITIVE; ANTI-EPSTEIN-BARR VCA IGG POSITIVE; ANTI-EPSTEIN-BARR VCA IGM NEGATIVE
== END 2017-05-23 20:57 | disposition home or self-care (01) ==
LOC: EME 17:52
PROVIDERS: Physician Assistant
DX: R14.0 Abdominal distension (gaseous) (principal); E10.65 Type 1 diabetes mellitus with hyperglycemia; K59.00 Constipation, unspecified; R16.0 Hepatomegaly, not elsewhere classified; Z79.4 Long term (current) use of insulin; F17.200 Nicotine dependence, unspecified, uncomplicated
CPT/HCPCS: 74000; 76705; 80053; 80074; 81003; 83690; 84702; 85025; 86308; 86664; 86665; 99281; 99284

== ENCOUNTER 2017-11-02 19:00 | Observation (INO) | payer BC ==
[~2017-11-02] VITALS: Ht 157.5 cm; Wt 63.9 kg
[~2017-11-02 19:00] MED LIST changes: +MIRALAX255 GM PO
[2017-11-02 19:54] LABS: APPEARANCE SL.HAZY ((CLEAR)); BILIRUBIN NEGATIVE; BLOOD MODERATE; COLOR YELLOW ((YELLOW)); GLUCOSE (STRIP) 50; KETONES 20; LEUKOCYTES MODERATE; NITRITE NEGATIVE; PROTEIN (STRIP) 100; SPECIFIC GRAVITY 1.013 (1.000-1.030); UROBILINOGEN 0.2 MG/DL (0.2-1.0)
[2017-11-02 20:08] LABS: BASOPHIL (%) 0.4 % (0-1); BASOPHIL COUNT 0.1 K/uL (0-0.1); EOSINOPHIL (%) 0.1 % (0-5); HEMATOCRIT 42.4 % (36.0-46.0); HEMOGLOBIN 15.1 G/DL (11.9-15.5); IMMATURE GRANULOCYTE (%) 0.9 % (0.0-0.7); LYMPHOCYTE (%) 10.4 % (15-42); LYMPHOCYTE COUNT 1.3 K/uL (1.0-2.8); MCH 31.9 PG (29.0-34.0); MCHC 35.6 G/DL (30.0-36.0); MCV 89.6 FL (83-99); MONOCYTE (%) 10.6 % (3-12); MONOCYTE COUNT 1.3 K/uL (0-0.8); NEUTROPHIL (%) 77.6 % (45-76); NEUTROPHIL COUNT 9.4 K/uL (1.8-6.4); PLATELET COUNT 371 K/uL (156-360); RBC DIS.WIDTH-CV 13.2 % (11.8-14.6); RBC DIS.WIDTH-SD 43.7 % (39-53); RED BLOOD COUNT 4.73 M/uL (3.80-5.20); WHITE BLOOD COUNT 12.1 K/uL (4.1-10.2)
[2017-11-02 20:18] LABS: BACTERIA RARE /HPF; EPITHELIAL CELLS 2+ /HPF; MUCUS TRACE /LPF; RED BLOOD CELLS TNTC /HPF (0-5); UCUL ADDED? YES
[2017-11-02 20:22] LABS: ALBUMIN 4.8 g/dL (3.2-4.8); CHLORIDE 105 mEq/L (99-109); POTASSIUM 4.1 mEq/L (3.7-5.4); SODIUM 142 mEq/L (136-147)
[2017-11-02 20:25] LABS: GLUCOSE 168 mg/dL (70-99); TOTAL PROTEIN 8.2 g/dL (6.4-8.3)
[2017-11-02 20:26] LABS: TOTAL BILIRUBIN 0.4 mg/dL (0.0-1.0)
[2017-11-02 20:28] LABS: ALKALINE PHOSPHATASE 100 IU/L (3-129); CREATININE 1.3 mg/dL (0.6-1.3); GFR ESTIMATE (CALCULATED) 53 mL/min/
[2017-11-02 20:29] LABS: UREA NITROGEN (BUN) 19 mg/dL (9-23)
[2017-11-02 20:30] LABS: AST (GOT) 21 IU/L (2-34)
[2017-11-02 20:31] LABS: ALT (GPT) 22 IU/L (3-49)
[2017-11-02 20:32] LABS: LIPASE 17 U/L (1.0-51.0)
[2017-11-02 21:16] LABS: CARBON DIOXIDE (BICARBONATE) 17.5 MEQ/L (20-31)
[2017-11-02] MEDS ORDERED: NOVOLOG 10100 UNITS/ SC (22:52)
[2017-11-02] MEDS ORDERED: ESCITALOPRAM OX10 MG PO (22:53)
[2017-11-02] MEDS ORDERED: ATARAX,VISTARIL25 MG PO (22:53)
[2017-11-02] MEDS ORDERED: ENALAPRIL MALEA10 MG PO (22:53)
[2017-11-02] MEDS ORDERED: PANTOPRAZOLE SO40 MG PO (22:54)
[2017-11-02 23:32] LABS: CHLORIDE 108 mEq/L (99-109); POTASSIUM 4.5 mEq/L (3.7-5.4); SODIUM 139 mEq/L (136-147)
[2017-11-02 23:37] LABS: CREATININE 0.9 mg/dL (0.6-1.3); GFR ESTIMATE (CALCULATED) > 59 mL/min/
[2017-11-02 23:38] LABS: UREA NITROGEN (BUN) 15 mg/dL (9-23)
[2017-11-02 23:46] LABS: GLUCOSE 277 mg/dL (70-99)
[2017-11-03] MEDS ORDERED: VALTREX50 MG/ML PO (00:55)
[2017-11-03 02:58] VITALS: BP 135/92
[2017-11-03 06:47] LABS: ALBUMIN 3.7 G/DL (3.2-4.8); ALKALINE PHOSPHATASE 69 IU/L (3-129); ALT (GPT) 13 IU/L (3-49); AST (GOT) 16 IU/L (2-34); CHLORIDE 109 MEQ/L (99-109); CREATININE 0.6 MG/DL (0.6-1.3); GFR ESTIMATE (CALCULATED) > 59 mL/min/; LIPASE 12 U/L (1.0-51.0); POTASSIUM 3.8 MEQ/L (3.7-5.4); SODIUM 141 MEQ/L (136-147); TOTAL BILIRUBIN 0.5 MG/DL (0.0-1.0); TOTAL PROTEIN 5.8 G/DL (6.4-8.3); UREA NITROGEN (BUN) 9 mg/dL (9-23)
[2017-11-03 06:50] LABS: GLUCOSE 87 mg/dL (70-99)
[2017-11-03 07:32] VITALS: BP 120/72
[2017-11-03 07:39] LABS: HEMATOCRIT 36.3 % (36.0-46.0); MCH 31.5 PG (29.0-34.0); MCHC 34.2 G/DL (30.0-36.0); MCV 92.1 FL (83-99); PLATELET COUNT 292 K/uL (156-360); RBC DIS.WIDTH-CV 13.7 % (11.8-14.6); RBC DIS.WIDTH-SD 46.5 % (39-53); RED BLOOD COUNT 3.94 M/uL (3.80-5.20); WHITE BLOOD COUNT 8.3 K/uL (4.1-10.2)
[2017-11-03 07:54] LABS: HEMOGLOBIN 12.4 G/DL (11.9-15.5)
[2017-11-03] MEDS ORDERED: LEVEMIR100 UNIT/2 SC (12:39)
[2017-11-03] MEDS ORDERED: CEFTIN500 MG PO (12:39)
[2017-11-03 12:44] VITALS: BP 125/80
== END 2017-11-03 13:30 | disposition home or self-care (01) ==
LOC: EME 19:00 → EDOF 11-03 01:43 → ENRESERV 11-03 01:47 → 5WEST 11-03 02:47
PROVIDERS: Hospitalist; Physician Assistant; Physician Assistant Medical
DX: R11.2 Nausea with vomiting, unspecified (principal); E10.10 Type 1 diabetes mellitus with ketoacidosis without coma; N39.0 Urinary tract infection, site not specified; Z96.41 Presence of insulin pump (external) (internal); B00.9 Herpesviral infection, unspecified; G40.909 Epilepsy, unspecified, not intractable, without status epilepticus; G43.909 Migraine, unspecified, not intractable, without status migrainosus; Z86.19 Personal history of other infectious and parasitic diseases; F17.210 Nicotine dependence, cigarettes, uncomplicated; K76.0 Fatty (change of) liver, not elsewhere classified; Q63.1 Lobulated, fused and horseshoe kidney
CPT/HCPCS: 74177; 80048 91; 80053; 81003; 81025; 82010; 82803; 82948; 83690; 85025; 85027; 87086; G0378; J0696; J2405; J3010; J7030; J7050